=== PATIENT | male | born 1975 | race Caucasian/White ===

== ENCOUNTER 2019-05-23 08:48 | Emergency (ER) | payer BC, OTHER ==
[~2019-05-23] VITALS: Ht 182.9 cm; Wt 88.5 kg
[~2019-05-23 08:48] MED LIST: Z.0.CELEXA40 MG PO
--- OUTSIDE RECORDS SUMMARY | 2019-05-23 08:51 | XMS REPORT | Summary of Care ---
Author Author CASSANDRA BLANCO Organization Unknown Address Unknown Phone Unavailable Care Team Providers Care Psychotherapist Counselor Name Role Phone CASSANDRA BLANCO Unavailable Unavailable FÁTIMA GRACE, KYLE Rodriguez Unavailable Unavailable FÁTIMA Johnson, KYLE Miller Unavailable KARIE GRACE [place], ALEXA TEMPLE Unavailable Unavailable Unavailable Unavailable Functional Status Name Dates Details Functional status health issues are not documented Status: Name Dates Details Cognitive status health issues are not documented Status: Problems Name Dates Details Overweight (BMI 25.0-29.9) (278.02, E66.3) Status: Active Allergic rhinitis (477.9, J30.9) Status: Active Acute sinusitis (461.9, J01.90) Status: Active 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, 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 At risk for cardiovascular event (V49.89, Z91.89) Status: Active Cigarette smoker (305.1, F17.210) Status: Active Asthma (493.90, J45.909) Status: Active Allergic sinusitis (477.9, J30.9) Status: Active Essential hypertension (401.9, I10) Status: Active Hyperlipidemia (272.4, E78.5) Status: Active Encounter for screening for HIV (V73.89, Z11.4) Status: Active Medications Name Dates Details Olmesartan Medoxomil 20 MG Oral Tablet TAKE 1 TABLET BY MOUTH ONCE DAILY Quantity: 90 CASSANDRA BLANCO * Start : 21-Feb-2018 Active Montelukast Sodium 10 MG Oral Tablet TAKE 1 TABLET BY MOUTH ONCE DAILY AT BEDTIME * Quantity: 90 Refills: 1 CASSANDRA BLANCO * Start : 26-Jun-2018 Active Aspirin 81 MG TABS TAKE 1 TABLET DAILY. * Refills: 0 Active ProAir HFA 108 (90 Base) MCG/ACT Inhalation Aerosol Solution INHALE 1 TO 2 PUFFS EVERY 4 TO 6 HOURS NEEDED. * Quantity: 1 Refills: 3 CASSANDRA BLANCO Active 8.5 GM Inhaler Fluticasone Propionate 50 MCG/ACT Nasal Suspension USE 2 SPRAYS IN EACH NOSTRIL ONCE DAILY * Quantity: 1 Refills: 5 BRADEN CASSANDRA Chavez * Start : 16-Mar-2018 Active 9.9 ML Bottle Chantix Starting Month Jovanni 0.5 MG X 11 & 1 MG X 42 Oral Tablet TAKE DIRECTED PER PACKAGE INSTRUCTIONS. * Quantity: 53 Refills: 0 BRADEN Duc.CASSANDRA Cote * Start : 03-May-2019 Active Chantix Continuing Month Jovanni 1 MG Oral Tablet TAKE DIRECTED PER PACKAGE INSTRUCTIONS. * Quantity: 1 Refills: 1 BRADEN Duc.CASSANDRA Cote * Start : 03-May-2019 Active 56 Tablet Pack Allergies and Adverse Reactions Name Dates Details No Known Drug Allergies (Allergy) Status: Active Past Medical History Name Dates Details History of Annular tear of cervical disc (722.4, M50.30) Status: Resolved History of fracture of right ankle (V15.51, Z87.81) Status: Resolved History of Tear of medial meniscus of right knee (836.0, S83.241A) Status: Resolved Procedures Procedure Dates Details [QLH] CMP W/EGFR Date: 03-May-2019 [QH] LIPID PANEL WITH REFLEX TO DIRECT LDL Date: 03-May-2019 [QH] HIV AB, HIV 1/2, EIA, WITH REFLEXES Date: 03-May-2019 History of Ankle surgery Completed History of Knee surgery Completed History of Neck surgery Completed Immunization Name Dates Details Td (adult), unspecified formulation on: Nov-2016 Influenza on: 28-Sep-2018 Family History Name Dates Details Family history of type 2 diabetes mellitus (V18.0, Z83.3) Status: Active Family history of hyperlipidemia (V18.19, Z83.438) Status: Active Family history of essential hypertension (V17.49, Z82.49) Status: Active Name Dates Details Family history of hyperlipidemia (V18.19, Z83.438) Status: Active Family history of cardiac disorder (V17.49, Z82.49) Status: Active Family history of myocardial infarction (V17.3, Z82.49) Status: Active Social History Name Dates Details - Status: Name Dates Details Current every day smoker Vital Signs Date Test Result Details 03-May-20198:49 Physical Findings 3 Status: Comments: PHQ-9 Adult Depression Screening 03-May-20198:29 BP Systolic 109 mm[Hg] Status: Comments: Location: [facility] [place]; Position: Sitting BP Diastolic 76 mm[Hg] Status: Comments: Location: [facility] [place]; Position: Sitting Height 72 in Status: Weight 209 lb Status: Body Mass Index Calculated 28.35 kg/m2 Status: Body Surface Area Calculated 2.17 m2 Status: Temperature 97 f Status: Comments: Method: Temporal Heart Rate 100 /min Status: Respiration Rate 16 /min Status: Results Date Description Value Details Results not documented Plan of Care Name Dates Details Planned Observations Planned Goals not documented Planned Encounters Appointment; CASSANDRA FELICIANO P.A. On: 06-Aug-2019 8:45 Interventions Provided Medication Changes* Chantix Continuing Month Jovanni 1 MG Oral Tablet - Start * Chantix Starting Month Jovanni 0.5 MG X 11 & 1 MG X 42 Oral Tablet - Start * Montelukast Sodium 10 MG Oral Tablet - Renew * Olmesartan Medoxomil 20 MG Oral Tablet - Renew Labs/Procedures/Imaging* [QH] HIV AB, HIV 1/2, EIA, WITH REFLEXES; To Be Done: 03 May 2019 * [QH] LIPID PANEL WITH REFLEX TO DIRECT LDL; To Be Done: 03 May 2019 * [QLH] CMP W/EGFR; To Be Done: 03 May 2019 * Tobacco Use Screening; Done: 03 May 2019 Instructions* Smoking and tobacco use cessation counseling visit; intermediate, greater than 3 minutes up to 10 minutes; Done: 03 May 2019 Plan* HTN - stable; continue olmesartan; low sodium diet * Hyperlipidemia - recheck lipids * Asthma/Allergic rhinitis - stable; continue montelukast, proair, flonase as directed * Tobacco use - start chantix (starting pack x 1 month, then continuing pack x 2 months; set quit date for within 1 week of starting medication; discussed risks/benefits/alternatives * health maintenance - HIV screening ordered & verbal consent was obtained Instructions Name Dates Details Instructions not documented Encounters Appointment; CASSANDRA FELICIANO P.A. Encounter Diagnosis: Problem not documented On: 18-May-2017 14:00 Appointment; CASSANDRA FELICIANO P.A. Encounter Diagnosis: Problem not documented On: 17-Jun-2017 16:00 Appointment; CASSANDRA FELICIANO P.A. Encounter Diagnosis: Problem not documented On: 03-Nov-2017 10:15 Appointment; CASSANDRA FELICIANO P.A. Encounter Diagnosis: Problem not documented On: 16-Mar-2018 8:00 Appointment; CASSANDRA FELICIANO P.A. Encounter Diagnosis: Problem not documented On: 26-Oct-2018 7:30 Appointment; CASSANDRA FELICIANO P.A. Encounter Diagnosis: Problem not documented On: 03-May-2019 8:45
--- OUTSIDE RECORDS SUMMARY | 2019-05-23 08:51 | XMS REPORT | Clinical Summary ---
Author Author [facility] Organization [facility] Address Unknown Phone Unavailable Care Team Providers Care Electrical Automation Engineer Name Role Phone Radha Pathak MD PCP Allergies No Known Allergies Medications End Date Status Medication Sig Dispensed Refills Start Date Active meloxicam (MOBIC) 15 mg Take 1 tablet 10 tablet 0 tablet (15 mg total) 9 by mouth daily as needed for mild pain for up to 10 doses. 03/31/2019 amoxicillin (AMOXIL) 500 Take 1 14 capsule 0 MG capsule capsule (500 9 mg total) by mouth 2 (two) times a day for 7 days. 03/27/2019 acetaminophen-codeine Take 1 tablet 10 tablet 0 (TYLENOL WITH CODEINE #3) by mouth 9 300-30 mg per tablet every 6 (six) hours as needed for moderate pain for up to 10 doses. Active Problems Not on file Encounters Care Team Description Date Type Specialty Karan Blanco, Hank Hamm, Pulpitis (Primary Dx); Dental caries; Dental decay 03/24/2019 Emergency Emergency Medicine after 05/22/2018 Social History Date Tobacco Use Types Packs/Day Years Used Current Every Day Smoker 0.5 Smokeless Tobacco: Never Used Sex Assigned at Date Recorded Not on file Industry Job Start Date Occupation Not on file Not on file Not on file Travel End Travel History Travel Start No recent travel history available. Last Filed Vital Signs Time Taken Vital Sign Reading 03/24/2019 5:07 PM CDT Blood Pressure 132/77 03/24/2019 5:07 PM CDT Pulse 89 03/24/2019 5:07 PM CDT Temperature 36.6 C (97.9 F) 03/24/2019 5:07 PM CDT Respiratory Rate 18 03/24/2019 5:07 PM CDT Oxygen Saturation 97% - Inhaled Oxygen - Concentration 03/24/2019 5:07 PM CDT Weight 95.3 kg (210 lb) 03/24/2019 5:07 PM CDT Height 182.9 cm (6') 03/24/2019 5:07 PM CDT Body Mass Index 28.48 Plan of Treatment Not on file Results Not on fileafter 05/22/2018 Insurance Type Payer Benefit Subscriber ID Effective Phone Address Plan / Dates Group PPO BCBS ANTHEM xxxxxxxxxxxx 2015-P [employer] resent Advance Directives Patient has advance care planning documents on file. For more information, osbaldo mcfarland contact: Rodrigo Chua [address] [place] [address]
[2019-05-23] MEDS ORDERED: LIDOCAINE 5% PATCH TP ONE (09:15)
[2019-05-23] MEDS ORDERED: DIAZEPAM 5 MG TAB PO ONE (09:15)
[2019-05-23] MEDS ORDERED: KETOROLAC TROMETHAMINE 60 MG/2 ML VIAL IM ONE (09:15)
--- NOTE | 2019-05-23 10:15 | Diagnostic Imaging Report ---
Exam: Lumbar spine complete History: Low back pain Comparison: None. Findings: There are 5 nonrib-bearing lumbar-type vertebral bodies. No acute, displaced fracture or subluxation. No pars interarticularis defects on the oblique radiographs. Mild disc space narrowing and marginal osteophytosis L3-4 through L5-S1. Mild bilateral facet arthropathy L5-S1. Sacroiliac joints are intact. Sacral foramina are intact superiorly. Impression: No acute osseous abnormality. Mild degenerative disc changes and facet arthropathy of the lower lumbar spine. Signed by: Dr. Venkatesh Ludwig M.D. on 05/23/2019 10:11 AM
[2019-05-23] MEDS ORDERED: ROBAXIN-750750 MG PO (10:23)
[2019-05-23] MEDS ORDERED: NAPROXEN250 MG PO (10:23)
[2019-05-23] MEDS ORDERED: PREDNISONE20 MG PO (10:23)
[2019-05-23 10:47] VITALS: BP 119/85
== END 2019-05-23 10:42 | disposition home or self-care (01) ==
LOC: ER 08:48
DX: M54.5 Low back pain (principal); S39.012A Strain of muscle, fascia and tendon of lower back, initial encounter; S33.5XXA Sprain of ligaments of lumbar spine, initial encounter; G89.29 Other chronic pain; M47.26 Other spondylosis with radiculopathy, lumbar region; X50.0XXA Overexertion from strenuous movement or load, initial encounter
CPT/HCPCS: 72110; 99283; J1885

== ENCOUNTER 2019-07-22 06:34 | Emergency (ER) | payer BC ==
[~2019-07-22] VITALS: Ht 182.9 cm; Wt 88.5 kg
[~2019-07-22 06:34] MED LIST changes: +NAPROXEN250 MG PO; +PREDNISONE20 MG PO; +ROBAXIN-750750 MG PO
--- OUTSIDE RECORDS SUMMARY | 2019-07-22 06:37 | XMS REPORT ---
Author [facility] Address Unknown Phone Unavailable Care Team Providers Care Superintendent Pier Name Role Phone Michael SAUCEDO Unavailable Unavailable Payers Payer Name Policy Type Policy Number Effective Date Expiration Date Problems This patient has no known problems. Allergies, Adverse Reactions, Alerts Allergy Name Allergy Type Status Severity Reaction(s) Onset Date Inactive Date Treating Clinician Comments No Known Allergies DA Active U 2018-04-05 00:00:00 Medications This patient has no known medications. Results Test Description Test Time Test Comments Text Results Atomic Results Result Comments - XR L-SPINE 4+VIEWS 2019-05-25 13:17:00 FAX: Radha Dawkins [phone] [place]: St: REG FAX: Bret Sotelo NP [phone] Name: AMRIK GIVENS [facility] : 1975 Age/S: 43/M [address] [place] [address] Unit #: [id number] Loc: [place] [address] Phys: Bret Sotelo NP Acct: [id number] Dis Date: Status: REG ER PHONE #: [phone] Exam Date: 05/25/2019 1310 FAX #: [phone] Reason: low back pain EXAMS: CPT CODE: [id number] XR L-SPINE 4+VIEWS 84670 Five-view lumbar spine. INDICATION: Acute lower lumbar back pain post injury 2 days ago. FINDINGS: No prior for comparison. Lumbar vertebral bodies are normal in height and alignment on lateral view. There is mild disc space narrowing at L3-L4 with mild anterior spurring. Minimal lateral degenerative spurring also seen throughout. No definite pars defects on the oblique views. IMPRESSION: Mild degenerative disc disease most notable at L3-L4. SL: [id number] at 1317 Reported and signed by: Anselmo Isaacs M.D. CC: Radha Pathak; Bret Sotelo NP Technologist: ABBEY Palafox) Trnscrd Date/Time/By: 05/25/2019 (0304) : By: [email or web address] Orig Print D/T: S: 05/25/2019 (6965) PAGE 1 Signed Report SP LUMBAR, COMPLETE MIN 4VW 2019-05-23 10:08:00 [place] [address] Patient Name: AMRIK GIVENS MR #: [id number] : 1975 Age/Sex: 43/M Req #: [id number] Adm Physician: Ordered by: MARIO SAUCEDO MD Report #: [id number] Location: ER Room/Bed: Procedure: [id number] DX/SP LUMBAR, COMPLETE MIN 4VW Exam Date: 05/23/19 Exam Time: 914 REPORT STATUS: Signed Exam: Lumbar spine complete History: Low back pain Comparison: None. Findings: There are 5 nonrib-bearing lumbar-type vertebral bodies. No acute, displaced fracture or subluxation. No pars interarticularis defects on the oblique radiographs. Mild disc space narrowing and marginal osteophytosis L3-4 through L5-S1. Mild bilateral facet arthropathy L5-S1. Sacroiliac joints are intact. Sacral foramina are intact superiorly. Impression: No acute osseous abnormality. Mild degenerative disc changes and facet arthropathy of the lower lumbar spine. Signed by: Dr. Efren Gilbert M.D. on 05/23/2019 10:11 AM Dictated By: EFREN GILBERT MD 1011 Transcribed By: IRMA on 05/23/19 1011 COPY TO: MARIO SAUCEDO MD
--- OUTSIDE RECORDS SUMMARY | 2019-07-22 06:37 | XMS REPORT | Clinical Summary ---
Author Author [facility] Organization [facility] Address Unknown Phone Unavailable Care Team Providers Care Tank Refinisher Name Role Phone Radha Pathak MD PCP [...] Team Description Date Type Specialty Karan Blanco, BELLA-Hank Tamez, Pulpitis (Primary Dx); Dental caries; Dental decay 03/24/2019 Emergency Emergency Medicine after 07/21/2018 Social History Date Tobacco Use Types Packs/Day Years Used Current Every Day Smoker 0.5 Smokeless Tobacco: Never Used Sex Assigned at Date Recorded Not on file Industry Job Start Date Occupation Not on file Not on file Not on file Travel End Travel History Travel Start No recent travel history available. Last Filed Vital Signs Reading Time Taken Comments Vital Sign 132/77 03/24/2019 5:07 PM CDT Blood Pressure 89 03/24/2019 5:07 PM CDT Pulse 36.6 C (97.9 F) 03/24/2019 5:07 PM CDT Temperature 18 03/24/2019 5:07 PM CDT Respiratory Rate 97% 03/24/2019 5:07 PM CDT Oxygen Saturation - - Inhaled Oxygen Concentration 95.3 kg (210 lb) 03/24/2019 5:07 PM CDT Weight 182.9 cm (6') 03/24/2019 5:07 PM CDT Height 28.48 03/24/2019 5:07 PM CDT Body Mass Index Plan of Treatment Not on file Results Not on fileafter 07/21/2018 Insurance Type Payer Benefit Subscriber ID Effective Phone Address Plan / Dates Group PPO BCBS ANTHEM xxxxxxxxxxxx 2015-P [place]UL [place] resent Advance Directives For more information, please contact: [phone] Patient Winchman/Crane Operator Explanation Type Date Recorded Advance Directives, 03/24/2019 5:00 PM Living Will and Medical Power of Checking Department Supervisor
[2019-07-22 06:49] VITALS: BP 138/75
== END 2019-07-22 06:53 | disposition home or self-care (01) ==
LOC: ER 06:34
DX: S39.012A Strain of muscle, fascia and tendon of lower back, initial encounter (principal); G89.21 Chronic pain due to trauma; X50.0XXA Overexertion from strenuous movement or load, initial encounter; I10 Essential (primary) hypertension; J45.909 Unspecified asthma, uncomplicated
CPT/HCPCS: 99282